=== PATIENT | female | born 2000 | race African-American/Black ===

== ENCOUNTER 2024-07-02 08:16 | Emergency (ER) | payer BC ==
[~2024-07-02] VITALS: Ht 170.2 cm; Wt 117.3 kg
[2024-07-02] MEDS ORDERED: Albuterol/Ipratropium 3 MG-0.5 MG/3 ML Neb Soln IH ONE (09:00)
[2024-07-02] MEDS ORDERED: predniSONE 20 MG TAB PO ONE (10:15)
[2024-07-02] MEDS ORDERED: PREDNISONE20 MG PO (10:23)
[2024-07-02 10:26] VITALS: BP 140/64; PULSE 105
== END 2024-07-02 10:32 | disposition home or self-care (01) ==
LOC: COL.ER 08:16
DX: J45.901 Unspecified asthma with (acute) exacerbation (principal); J20.9 Acute bronchitis, unspecified
CPT/HCPCS: J7512